=== PATIENT | male | born 1955 | race Caucasian/White ===

== ENCOUNTER 2021-11-01 11:04 | Outpatient (CLI) | payer OTHER | END 2021-11-01 11:05 | disposition home or self-care (01) | LOC: NUCLEAR 11:04 | PROVIDERS: ATTEND Specialist | DX: I87.2 Venous insufficiency (chronic) (peripheral) (principal) ==

== ENCOUNTER 2021-11-02 07:39 | Outpatient (CLI) | payer OTHER | END 2021-11-02 07:46 | disposition home or self-care (01) | LOC: NUCLEAR 07:39 | PROVIDERS: ATTEND Specialist | DX: I73.9 Peripheral vascular disease, unspecified (principal) ==